=== PATIENT | female | born 1985 | race Caucasian/White ===

== ENCOUNTER 2017-05-09 14:00 | Emergency (ER) | payer SELFPAY ==
[2017-05-09] MEDS ORDERED: Dexamethasone 4 mg/ml Vial ONE (14:18)
== END 2017-05-09 14:22 | disposition home or self-care (01) ==
LOC: BURERS 14:00
DX: J02.9 Acute pharyngitis, unspecified (principal); E03.9 Hypothyroidism, unspecified
CPT/HCPCS: 99283; J1100

== ENCOUNTER 2019-09-18 19:10 | Emergency (ER) | payer MEDICAID, OTHER ==
[2019-09-18] MEDS ORDERED: Ketorolac Tromethamine 30 MG/ML VIAL ONE (21:36)
[2019-09-18] MEDS ORDERED: predniSONE 20 MG TAB ONE (21:36)
--- NOTE | 2019-09-18 21:49 | RAD ---
RIGHT HIP 2 VIEWS: Date: 09/18/2019 No fracture or area of bony destruction seen. The joint space and surfaces appear normal. IMPRESSION: No acute findings. POS: HOME
== END 2019-09-18 22:06 | disposition home or self-care (01) ==
LOC: BURERS 19:10
DX: M54.5 Low back pain (principal); E03.9 Hypothyroidism, unspecified; Z79.899 Other long term (current) drug therapy
CPT/HCPCS: 96372; J1885; J7512

== ENCOUNTER 2020-05-14 15:13 | Emergency (ER) | payer SELFPAY ==
[2020-05-14 15:52] LABS: Pregnancy Test - Urine (BHCG) Negative (Negative)
[2020-05-14 15:53] LABS: Bilirubin Negative (Negative); Blood, Urine Negative (Negative); Clarity Clear (Clear); Glucose, Urine (Dipstick) Negative (Negative); Ketone, Urine Negative (Negative); Leukocyte Trace (Negative); Nitrite Negative (Negative); Pregu Control Background? CLEAR/WHITE (CLR/WHITE); Pregu Control Bar Appear? YES (CONTROL BAR); Protein, Urine (Dipstick) Negative (Neg-Trace); Specific Gravity 1.025 (1.002-1.036); Specific Gravity, Urine 1.025 (1.005-1.030)
[2020-05-14 16:39] LABS: Bacteria/HPF Rare-Few HPF (None Seen); RBC/HPF 0-3 HPF (0-3); WBC/HPF 0-3 HPF (0-3)
[2020-05-14 16:40] LABS: Epithelial Cast 0-3 LPF (None Seen)
== END 2020-05-14 16:37 | disposition home or self-care (01) ==
LOC: BURERS 15:13
DX: M54.5 Low back pain (principal); E03.9 Hypothyroidism, unspecified
CPT/HCPCS: 81003; 81015; 81025; 99283

== ENCOUNTER 2020-11-21 03:37 | Emergency (ER) | payer SELFPAY | END 2020-11-21 04:20 | disposition home or self-care (01) | LOC: BURERS 03:37 | DX: R07.89 Other chest pain (principal); E03.9 Hypothyroidism, unspecified | CPT/HCPCS: 99284 ==

== ENCOUNTER 2021-04-27 21:20 | Emergency (ER) | payer OTHER, SELFPAY ==
[2021-04-27 21:47] LABS: Bilirubin Small (Negative); Blood, Urine Negative (Negative); Clarity Clear (Clear); Glucose, Urine (Dipstick) Negative (Negative); Ketone, Urine 15 mg/dL (Negative); Leukocyte Trace (Negative); Nitrite Negative (Negative); Protein, Urine (Dipstick) Negative (Neg-Trace); Urobilinogen 0.2 mg/dL (Less than 2)
[2021-04-27 21:53] LABS: Pregnancy Test - Urine (BHCG) Negative (Negative)
[2021-04-27 21:55] LABS: Pregu Control Background? CLEAR/WHITE (CLR/WHITE); Pregu Control Bar Appear? YES (CONTROL BAR); Specific Gravity 1.026 (1.002-1.036); Specific Gravity, Urine 1.026 (1.002-1.036)
[2021-04-27 22:02] LABS: Bacteria/HPF Rare-Few HPF (None Seen); RBC/HPF 0-3 HPF (0-3); Squamous Epithelial 0-3 HPF (0-3)
[2021-04-27] MEDS ORDERED: Ciprofloxacin 500 MG TAB ONE (22:06)
== END 2021-04-27 22:09 | disposition home or self-care (01) ==
LOC: BURERS 21:20
DX: N30.00 Acute cystitis without hematuria (principal)
CPT/HCPCS: 81003; 81015; 81025; 99283

== ENCOUNTER 2021-08-08 18:37 | Emergency (ER) | payer OTHER, SELFPAY ==
[2021-08-08] MEDS ORDERED: Bupivacaine 0.5% 10 ML VIAL ONE (19:10)
[2021-08-08] MEDS ORDERED: Clindamycin 150 MG CAP ONE (19:31)
== END 2021-08-08 19:32 | disposition home or self-care (01) ==
LOC: BURERS 18:37
DX: K04.7 Periapical abscess without sinus (principal); E03.9 Hypothyroidism, unspecified; Z86.16 Personal history of COVID-19
CPT/HCPCS: 64400; J3490

== ENCOUNTER 2021-09-22 12:05 | Emergency (ER) | payer SELFPAY ==
[2021-09-22 12:34] LABS: Bilirubin Negative (Negative); Blood, Urine Negative (Negative); Clarity Slightly Cloudy (Clear); Glucose, Urine (Dipstick) Negative (Negative); Ketone, Urine Negative (Negative); Leukocyte Small (Negative); Nitrite Positive (Negative); Protein, Urine (Dipstick) Negative (Neg-Trace); Urobilinogen 0.2 mg/dL (Less than 2)
[2021-09-22 12:40] LABS: Bacteria/HPF 2+ HPF (None Seen); RBC/HPF None Seen HPF (0-3); Squamous Epithelial 0-3 HPF (0-3)
== END 2021-09-22 13:14 | disposition home or self-care (01) ==
LOC: BURERS 12:05
DX: N39.0 Urinary tract infection, site not specified (principal); E03.9 Hypothyroidism, unspecified
CPT/HCPCS: 81003; 81015; 99283

== ENCOUNTER 2022-01-06 19:39 | Emergency (ER) | payer OTHER, SELFPAY ==
[2022-01-06] MEDS ORDERED: predniSONE 20 MG TAB PO ONE (19:40)
[2022-01-06] MEDS ORDERED: Clindamycin 150 MG CAP ONE (20:57)
== END 2022-01-06 21:09 | disposition home or self-care (01) ==
LOC: BURERS 19:39
DX: J02.0 Streptococcal pharyngitis (principal)
CPT/HCPCS: 87430; 99283; J7512

== ENCOUNTER 2022-03-16 17:30 | Emergency (ER) | payer OTHER | END 2022-03-16 19:20 | disposition home or self-care (01) | LOC: BURERS 17:30 | DX: J11.1 Influenza due to unidentified influenza virus with other respiratory manifestations (principal); E03.9 Hypothyroidism, unspecified; Z20.822 Contact with and (suspected) exposure to COVID-19 | CPT/HCPCS: 87081; 87430; 87804; 99283; U0003; U0005 ==

== ENCOUNTER 2022-06-04 06:22 | Emergency (ER) | payer OTHER ==
[2022-06-04 07:05] LABS: #Basophils 0.1 thou/uL (0.0-0.2); #Eosinphils 0.1 thou/uL (0.0-0.7); #Lymphocytes 1.1 thou/uL (1.20-3.40); #Monocytes 0.4 thou/uL (0.11-0.59); %Basophils 1.2 % (0.0-1.0); %Eosinophils 2.2 % (0.0-10.0); %Lymphocytes 20.1 % (21.0-51.0); %Monocytes 6.7 % (0.0-10.0); %Neutrophils 69.7 % (42.0-75.0); Hemoglobin 14.8 g/dL (12.0-16.0); Mean Corpuscular HGB CONC 34.3 g/dL (32.0-36.0); Mean Corpuscular Hemoglobin 30.3 pg (27.0-31.0); Mean Corpuscular Volume 88.3 fl (78.0-98.0); Mean Platelet Volume 11.7 fL (7.4-10.4); Platelet Count 188 10x3/uL (130-400); RBC Distribution Width 11.8 % (11.5-14.5); Red Blood Cell (RBC) Count 4.89 mill/uL (4.20-5.40); White Blood Cell (WBC) Count 5.7 10x3/uL (4.8-10.8)
[2022-06-04 07:06] LABS: Prothrombin Time 13.2 sec (12.0-14.7)
[2022-06-04] MEDS ORDERED: Morphine 4 MG/ML VIAL ONE (07:09)
[2022-06-04 07:11] LABS: BHCG - Serum Negative (NEGATIVE); Pregs Control Background? CLEAR/WHITE (CLR/WHITE); Pregs Control Bar Appear? YES (CONTROL BAR)
[2022-06-04 07:21] LABS: ALT (SGPT) 27 U/L (8-55); AST (SGOT) 22 U/L (5-34); Albumin 3.9 g/dL (3.5-5.0); Alkaline Phosphatase 49 U/L (40-110); Anion Gap 12 mmol/L (10-20); BUN (Urea Nitrogen) 13 mg/dL (7.0-18.7); Bilirubin, Total 0.5 mg/dL (0.2-1.2); Calc. Creatinine Clearance 0 mL/min (70-130); Calcium 8.9 mg/dL (7.8-10.44); Carbon Dioxide 21 mmol/L (22-29); Chloride 106 mmol/L (98-107); Estimated GFR 96; Globulin 3.3 g/dL (2.4-3.5); Glucose 106 mg/dL (70-105); Potassium 3.7 mmol/L (3.5-5.1); Protein, Total 7.2 g/dL (6.0-8.3); Sodium 135 mmol/L (136-145)
== END 2022-06-04 07:44 | disposition home or self-care (01) ==
LOC: BURERS 06:22
DX: S00.81XA Abrasion of other part of head, initial encounter (principal); S80.811A Abrasion, right lower leg, initial encounter; S80.812A Abrasion, left lower leg, initial encounter; S60.511A Abrasion of right hand, initial encounter; S60.512A Abrasion of left hand, initial encounter; E03.9 Hypothyroidism, unspecified; V89.2XXA Person injured in unspecified motor-vehicle accident, traffic, initial encounter
CPT/HCPCS: 36415; 70450; 71045; 80053; 83605; 84703; 85025; 85610; 96372; J2270

== ENCOUNTER 2022-06-10 11:11 | Outpatient (CLI) | payer OTHER | END 2022-06-10 11:12 | disposition home or self-care (01) | LOC: BURRAD 11:11 | PROVIDERS: ATTEND Family Medicine | DX: M67.911 Unspecified disorder of synovium and tendon, right shoulder (principal) ==

== ENCOUNTER 2023-09-19 13:15 | Emergency (ER) | payer OTHER, SELFPAY ==
[2023-09-19 13:35] LABS: Bilirubin Negative (Negative); Blood, Urine Negative (Negative); Clarity Clear (Clear); Glucose, Urine (Dipstick) Negative (Negative); Ketone, Urine Negative (Negative); Leukocyte Trace (Negative); Nitrite Negative (Negative); Protein, Urine (Dipstick) Negative (Neg-Trace); Urobilinogen 0.2 mg/dL (Less than 2)
[2023-09-19 13:38] LABS: Pregnancy Test - Urine (BHCG) Negative (Negative); Pregu Control Background? CLEAR/WHITE (CLR/WHITE); Pregu Control Bar Appear? YES (CONTROL BAR); Specific Gravity 1.001 (1.002-1.036); Specific Gravity, Urine 1.001 (1.002-1.036)
[2023-09-19 13:40] LABS: CAUTI Indications for Culture Dysuria,urgency,freq; RBC/HPF None Seen HPF (0-3); Squamous Epithelial 0-3 HPF (0-3); WBC/HPF 0-3 HPF (0-3)
[2023-09-19 13:41] LABS: Bacteria/HPF 1+ HPF (None Seen); Urine Culture Reflex No No
== END 2023-09-19 14:20 | disposition home or self-care (01) ==
LOC: BURERS 13:15
DX: N39.0 Urinary tract infection, site not specified (principal)
CPT/HCPCS: 81001; 81025; 99283